=== PATIENT | male | born 1945 | race Caucasian/White ===

== ENCOUNTER 2022-01-31 09:13 | Emergency (ER) | payer OTHER ==
[2022-01-31 09:27] VITALS: BP 141/73; PULSE 77; TEMP 98; BMI 23.7
== END 2022-01-31 10:38 | disposition home or self-care (01) ==
LOC: JERFT 09:13
DX: S93.402A Sprain of unspecified ligament of left ankle, initial encounter (principal); X50.9XXA Other and unspecified overexertion or strenuous movements or postures, initial encounter
CPT/HCPCS: 73564-TC-LT-FY; 73610-TC-LT-FY; 99284-25

== ENCOUNTER 2023-04-08 04:23 | Inpatient (IN) | payer OTHER ==
[2023-04-08 04:36] VITALS: BMI 33.0
[2023-04-08] MEDS ORDERED: SODIUM CHLORIDE 2,381 ML IV ONE (04:51)
[2023-04-08] MEDS ORDERED: SODIUM CHLORIDE 0.9% 500 ML INFUS.BAG IV ONE (04:52)
[2023-04-08] MEDS ORDERED: ACETAMINOPHEN 1000 MG/100 ML BAG IVPB ONE (04:57)
[2023-04-08] MEDS ORDERED: ACETAMINOPHEN INJECTION 100 ML IVPB ONE (05:37)
[2023-04-08 05:49] LABS: BASO % 0.3 % (0-2.0); EOS % 1.1 % (0-4.5); HEMATOCRIT 41.5 % (35.4-49); HEMOGLOBIN 13.8 GM/dL (11.7-16.9); LYMPH % 5.9 % (8-40); MCH 28.7 pg (25.7-33.7); MCHC 33.3 g/dl (32.0-35.9); MEAN CELL VOLUME 86.4 fl (80-96); MEAN PLT VOLUME 9.7 fl (7.5-11.1); MONO % 5.7 % (3.8-10.2); PLATELET COUNT 111 10^3/uL (134-434); RBC 4.81 M/mm3 (4.00-5.60); RDW 13.3 % (11.9-15.9); WHITE BLOOD COUNT 8.4 K/mm3 (4.0-10.0)
[2023-04-08 06:08] LABS: CHLORIDE 112 mmol/L (98-107); POTASSIUM 5.5 mmol/L (3.5-5.1); SODIUM 144 mmol/L (136-145)
[2023-04-08 06:10] LABS: BLOOD UREA NITROGEN 24.9 mg/dL (7-18); CALCIUM 8.6 mg/dL (8.5-10.1)
[2023-04-08 06:11] LABS: ALBUMIN 3.6 g/dl (3.4-5.0); ANION GAP 3 MMOL/L (8-16); CO2 29 mmol/L (21-32); GLUCOSE,RANDOM 100 mg/dL (74-106)
[2023-04-08 06:14] LABS: SGOT/AST 55 U/L (15-37); SGPT/ALT 39 U/L (13-61)
[2023-04-08 06:15] LABS: BILIRUBIN,TOTAL 0.7 mg/dL (0.2-1); TOT PROT 6.5 g/dl (6.4-8.2)
[2023-04-08 06:16] LABS: ALK PHOS 77 U/L (45-117)
[2023-04-08] MEDS ORDERED: LACTATED RINGERS SOLUTION 1000 ML INFUS.BAG IV ONE (07:42)
[2023-04-08 08:00] LABS: BASO % 0.3 % (0-2.0); EOS % 0.4 % (0-4.5); HEMATOCRIT 41.7 % (35.4-49); LYMPH % 5.8 % (8-40); MCH 29.2 pg (25.7-33.7); MCHC 33.7 g/dl (32.0-35.9); MEAN CELL VOLUME 86.8 fl (80-96); MEAN PLT VOLUME 9.8 fl (7.5-11.1); NEUT % 87.5 % (42.8-82.8); PLATELET COUNT 123 10^3/uL (134-434); RDW 13.2 % (11.9-15.9); WHITE BLOOD COUNT 9.4 K/mm3 (4.0-10.0)
[2023-04-08 08:02] LABS: POTASSIUM 4.3 mmol/L (3.5-5.1)
[2023-04-08 08:03] LABS: CALCIUM 8.5 mg/dL (8.5-10.1)
[2023-04-08 08:04] LABS: ALBUMIN 3.8 g/dl (3.4-5.0); BLOOD UREA NITROGEN 22.7 mg/dL (7-18)
[2023-04-08 08:09] LABS: BILIRUBIN,TOTAL 0.8 mg/dL (0.2-1); TOT PROT 6.4 g/dl (6.4-8.2)
[2023-04-08 08:51] LABS: URINE COLOR YELLOW
[2023-04-08 08:52] LABS: PH,URINE 7.5 (5.0-8.0); URINE APPEARANCE CLEAR; URINE BILIRUBIN NEGATIVE (NEGATIVE); URINE GLUCOSE (UA) NEGATIVE (NEGATIVE); URINE KETONE NEGATIVE (NEGATIVE); URINE LEUK ESTERASE NEGATIVE (NEGATIVE); URINE NITRITE NEGATIVE (NEGATIVE); URINE PROTEIN NEGATIVE (NEGATIVE); URINE UROBILINOGEN 0.2 mg/dL (0.2-1.0)
[2023-04-08 10:58] VITALS: BP 127/76; PULSE 74; RESP 18; TEMP 98.7
== END 2023-04-08 14:26 | disposition home or self-care (01) | DRG 866 ==
LOC: JER 04:23 → UNDOADMIN 09:17 → JERBED 09:17
PROVIDERS: ADMIT Internal Medicine; ATTEND Internal Medicine
DX: B34.9 Viral infection, unspecified (principal); I48.91 Unspecified atrial fibrillation; R00.2 Palpitations
CPT/HCPCS: 0241U-QW; 36415; 71045-TC-FY; 80053; 81003; 82550; 82553; 84484; 85025; 87040; 87077; 87086; 93005; 93010; 99285-25